=== PATIENT | male | born 1970 | race American Indian/Alaskan Native ===

== ENCOUNTER 2019-05-05 20:02 | Emergency (ER) | payer SELFPAY ==
[2019-05-05 20:08] VITALS: BP 178/95
[2019-05-05] MEDS ORDERED: HYDROcodone/ACETAMINOPHEN 7.5-325MG TAB PO ONE (20:17)
--- NOTE | 2019-05-05 20:22 | Emergency Department Report ---
ED ENT HPI - General Chief complaint: Dental/Oral Stated complaint: TOOTH PAIN Time Seen by Provider: 05/05/19 20:11 Source: patient Mode of arrival: Ambulatory Limitations: No Limitations - History of Present Illness Initial comments: Patient is a 48-year-old male presents emergency room with complaints of right upper dental pain that began 2 days ago. Patient states that he had a tooth pulled on the right upper side 2 weeks ago. He states that he completed a course of penicillin a week ago. He denies any fever, nausea, vomiting, diarrhea, chills. He states that he cannot get into the dentist until 05/07/19. He states that he took ibuprofen 800 mg without much relief. He denies any past medical history or allergies to medications. He states he did not drive to the emergency department tonight. - Related Data Previous Rx's Medication Instructions Recorded Last Taken Type Clindamycin [Clindamycin CAP] 450 mg PO TID 7 Days #63 capsule 05/05/19 Unknown Rx Allergies Allergy/AdvReac Type Severity Reaction Status Date / Time No Known Allergies Allergy Unverified 05/05/19 20:08 ED Dental HPI - General Chief complaint: Dental/Oral Stated complaint: TOOTH PAIN Time Seen by Provider: 05/05/19 20:11 Source: patient Mode of arrival: Ambulatory Limitations: No Limitations - Related Data Previous Rx's Medication Instructions Recorded Last Taken Type Clindamycin [Clindamycin CAP] 450 mg PO TID 7 Days #63 capsule 05/05/19 Unknown Rx Allergies Allergy/AdvReac Type Severity Reaction Status Date / Time No Known Allergies Allergy Unverified 05/05/19 20:08 ED Review of Systems ROS: Stated complaint: TOOTH PAIN Other details as noted in HPI Comment: All other systems reviewed and negative ED Past Medical Hx - Past Medical History Previous Medical History?: No - Surgical History Past Surgical History?: No - Social History Smoking Status: Never Smoker Substance Use Type: None - Medications Home Medications: Home Medications Medication Instructions Recorded Confirmed Last Taken Type Clindamycin [Clindamycin CAP] 450 mg PO TID 7 Days #63 capsule 05/05/19 Unknown Rx ED Physical Exam - General Limitations: No Limitations General appearance: alert, other (appears to be in mild distress secondary to pain) - Head Head exam: Present: atraumatic, normocephalic - Eye Eye exam: Present: normal appearance - ENT ENT exam: Present: normal orophraynx, mucous membranes moist, other (tooth missing in the right upper jaw, there is surrouding erythema, small amount of edema, no necrosis, no central fluctuance, no drainage, uvula is midline, no uvular edema or deviation, no tongue elevation, no trismus, no submandibular edema, no muffled voice) - Respiratory Respiratory exam: Present: normal lung sounds bilaterally. Absent: respiratory distress, wheezes, rales, rhonchi, stridor, chest wall tenderness, accessory muscle use, decreased breath sounds, prolonged expiratory - Cardiovascular Cardiovascular Exam: Present: regular rate, normal rhythm, normal heart sounds. Absent: systolic murmur, diastolic murmur, rubs, gallop - Neurological Exam Neurological exam: Present: alert, oriented X3 - Psychiatric Psychiatric exam: Present: normal affect, normal mood - Skin Skin exam: Present: warm, dry, intact ED Course Vital Signs 05/05/19 20:05 Temperature 98.0 F Pulse Rate 78 Respiratory 18 Rate Blood Pressure 178/95 O2 Sat by Pulse 98 Oximetry ED Medical Decision Making - Medical Decision Making Patient is a 48-year-old male presents emergency room with complaints of right upper dental pain that began 2 days ago. Patient states that he had a tooth pulled on the right upper side 2 weeks ago. He states that he completed a course of penicillin a week ago. He denies any fever, nausea, vomiting, diarrhea, chills. He states that he cannot get into the dentist until 05/07/19. He states that he took ibuprofen 800 mg without much relief. He denies any past medical history or allergies to medications. He states he did not drive to the emergency department tonight. VSS. on exam: tooth missing in the right upper jaw, there is surrounding erythema, small amount of edema, no necrosis, no central fluctuance, no drainage, uvula is midline, no uvular edema or deviation, no tongue elevation, no trismus, no submandibular edema, no muffled voice. Examination consistent with possible early dental abscess. Patient given pain medication while in the ED as he did not drive. Patient given prescription for clindamycin. advised pt Please take medication as prescribed. May alternate Tylenol then ibuprofen every 8 hours as needed for pain. Please make sure to follow-up with your dentist on 05/07/2019. It is very important that you follow- up with a dentist. Return to the emergency room for any new or worsening symptoms. Critical care attestation.: If time is entered above; I have spent that time in minutes in the direct care of this critically ill patient, excluding procedure time. ED Disposition Clinical Impression: Dental abscess Disposition: TO HOME OR SELFCARE Is pt being admited?: No Does the pt Need Aspirin: No Condition: Stable Instructions: Dental Abscess (ED) Additional Instructions: Please take medication as prescribed. May alternate Tylenol then ibuprofen every 8 hours as needed for pain. Please make sure to follow-up with your dentist on 05/07/2019. It is very important that you follow-up with a dentist. Return to the emergency room for any new or worsening symptoms. Prescriptions: Clindamycin [Clindamycin CAP] 450 mg PO TID 7 Days #63 capsule Referrals: your, dentist [Other] - 2-3 Days Time of Disposition: 20:21 Print Language: SAMMARINESE
== END 2019-05-05 20:40 | disposition home or self-care (01) ==
LOC: ED 20:02
DX: K04.7 Periapical abscess without sinus (principal)
CPT/HCPCS: 99282